=== PATIENT | female | born 1950 | race African-American/Black ===

== ENCOUNTER 2019-07-11 08:37 | Emergency (ER) | payer OTHER ==
[~2019-07-11] VITALS: Ht 162.6 cm; Wt 60.4 kg
[2019-07-11 08:45] VITALS: BP 137/77
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
--- NOTE | 2019-07-11 08:53 | NUR ---
Patient ambulated to bed 11. RN evaluating patient at bedside.
--- NOTE | 2019-07-11 09:05 | NUR ---
DR. SABA EVALUATING PT AT BEDSIDE
--- NOTE | 2019-07-11 09:25 | NUR ---
biomed tech at bedside.
[2019-07-11] MEDS ORDERED: NEOMYCIN/POLYMYXIN/BACITRACIN 0.9 GM/1 PKT TP ONE (10:03)
[2019-07-11 10:09] VITALS: BP 137/77
--- NOTE | 2019-07-11 10:09 | NUR ---
Patient discharged with v/s stable. Written and verbal after care instructions given and explained. Patient alert, oriented and verbalized understanding of instructions. Ambulatory with steady gait. All questions addressed prior to discharge. ID band removed. Patient advised to follow up with PMD. Rx of NAPROSYN, AUGMENTIN given. Patient educated on indication of medication including possible reaction and side effects. Opportunity to ask questions provided and answered.
[2019-07-11] MEDS ORDERED: NEOMYCIN/POLYMYXIN/BACITRACIN OPTH OINT 3.5 GM TUBE OP SCH (10:10)
== END 2019-07-11 10:09 | disposition home or self-care (01) ==
LOC: MED 08:37
DX: S51.831A Puncture wound without foreign body of right forearm, initial encounter (principal); S61.432A Puncture wound without foreign body of left hand, initial encounter; R03.0 Elevated blood-pressure reading, without diagnosis of hypertension; W54.0XXA Bitten by dog, initial encounter; Y93.K1 Activity, walking an animal; Y92.89 Other specified places as the place of occurrence of the external cause; Y99.8 Other external cause status
CPT/HCPCS: 73090; 73130; 90471; 90715; 99283; Q0092

== ENCOUNTER 2019-07-13 08:24 | Emergency (ER) | payer OTHER ==
[~2019-07-13] VITALS: Ht 162.6 cm; Wt 59.4 kg
[2019-07-13 08:32] VITALS: BP 137/74
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
[2019-07-13 09:51] VITALS: BP 143/68
--- NOTE | 2019-07-13 09:51 | NUR ---
Patient discharged with v/s stable. Written and verbal after care instructions given and explained. Patient verbalized understanding. Ambulatory with steady gait. All questions addressed prior to discharge. Advised to follow up with PMD.
== END 2019-07-13 09:51 | disposition home or self-care (01) ==
LOC: MED 08:24
DX: S51.831D Puncture wound without foreign body of right forearm, subsequent encounter (principal); W54.0XXD Bitten by dog, subsequent encounter
CPT/HCPCS: 99283